=== PATIENT | female | born 1990 | race African-American/Black ===

== ENCOUNTER 2019-04-02 22:15 | Emergency (ER) | payer SELFPAY ==
[~2019-04-02] VITALS: Ht 165.1 cm; Wt 62.6 kg
[~2019-04-02 22:15] MED LIST: ALBU17AE4 IH
[2019-04-02 22:45] VITALS: BP 127/83
--- NOTE | 2019-04-02 22:46 | NUR ---
CAME IN FOR RLQ PAIN, THINKS SHE MIGHT BE , LAST USED [facility] 1HR AGO. TO ER BED 12, HOOKED TO MONITOR, VSS, AWAITING MD CAMARGO.
--- NOTE | 2019-04-02 23:20 | NUR ---
DR MAY AT BEDSIDE FOR EVAL
--- NOTE | 2019-04-02 23:22 | NUR ---
URINE SAMPLE SENT TO LAB
--- NOTE | 2019-04-02 23:43 | NUR ---
ENDORSEMENT GIVEN TO HUMBERTO HERNANDEZ FOR FREDO
== END 2019-04-03 00:10 | disposition home or self-care (01) ==
LOC: ER 22:20
DX: F15.10 Other stimulant abuse, uncomplicated (principal); I10 Essential (primary) hypertension; J45.909 Unspecified asthma, uncomplicated; F17.200 Nicotine dependence, unspecified, uncomplicated; R00.0 Tachycardia, unspecified; Z32.02 Encounter for pregnancy test, result negative
CPT/HCPCS: 84703-TC

== ENCOUNTER 2019-11-25 14:25 | Emergency (ER) | payer SELFPAY ==
[~2019-11-25] VITALS: Ht 152.4 cm; Wt 63.5 kg
--- NOTE | 2019-11-25 14:25 | NUR ---
Called pt states "dont call me in now -Be back in a couple minutes" Walked out of waiting area. Noticed Pt smoking out in Parking lot
[2019-11-25] MEDS ORDERED: HYDROCODONE/APAP 5/325MG 1 EACH TABLET PO ONE (15:00)
[2019-11-25] MEDS ORDERED: ONDANSETRON 4 MG TAB.RAPDIS SL ONE (15:00)
--- NOTE | 2019-11-25 15:18 | NUR ---
BIBS TO ER BED 14. AAOX4. NOT IN RESP DISTRESS. AMBULATORY. CAME IN FOR RECTAL BLEEDING AND RLQ ABDMONAL PAIN. PER PT, ABDOMINAL PAIN STARTED 2 WEEKS AGO RATED AT 5/10 CRAMPING SENSATION. RESTAL BLEEDING STARTED THIS MORNING. PT REPORTS, THAT SHE HAS BEEN CONSTIPATED FOR THE PAST WEEK AND HURST WHEN HAVING BM. MD WAS AT BEDSIDE FOR EVAL. ORDERS RECEIVED, NOTED AND CARRIED OUT. BASKET OPERATOR AT BEDSIDE FOR BLOOD DRAW. WILL CONTIONUE TO MONITOR PT.
[2019-11-25 15:33] LABS: APPEARANCE,URINE Cloudy (CLEAR); BILIRUBIN,URINE Negative (NEGATIVE); BLOOD, URINE Moderate Ery/uL (NEGATIVE); COLOR,URINE Yellow (YELLOW); KETONES,URINE Negative (NEGATIVE); LEUKOCYTE ESTERASE ,URINE Large (NEGATIVE); NITRITE, URINE Negative (NEGATIVE); PH,URINE 5.5 (5.0-8.0); PROTEIN,URINE >=300 mg/dl (NEGATIVE); UGLUCOSE Negative (NEGATIVE); UROBILINOGEN,URINE 0.2 EU/dL (0.2)
[2019-11-25 15:39] LABS: CALCIUM, SERUM 8.6 mg/dL (8.5-10.1); CREATININE 0.8 mg/dL (0.6-1.3); POTASSIUM 3.4 mmol/L (3.5-5.1)
[2019-11-25 15:44] LABS: BASOPHILS # (AUTO) 0.1 /CMM (0.0-0.2); BASOPHILS % (AUTO) 0.9 % (0.0-2.0); EOSINOPHILS % (AUTO) 0.9 % (0.0-6.0); HEMATOCRIT 31 % (33-45); HEMOGLOBIN 10.3 g/dL (11.5-14.8); LYMPHOCYTES # (AUTO) 1.5 /CMM (0.8-4.8); LYMPHOCYTES % (AUTO) 23.6 % (20.0-44.0); MEAN CORPUSCULAR HGB CONC 33 g/dl (31.0-36.0); MEAN CORPUSCULAR VOLUME 87 fL (82-100); MONOCYTES # (AUTO) 0.6 /CMM (0.1-1.30); MONOCYTES % (AUTO) 8.7 % (2.0-12.0); NEUTROPHILS # (AUTO) 4.3 /CMM (1.8-8.9); NEUTROPHILS % (AUTO) 65.9 % (43.0-81.0); PLATELET COUNT (AUTO) 312 /CMM (150-450); RED BLOOD CELL COUNT(AUTO) 3.62 MIL/uL (4.0-5.2); WHITE BLOOD COUNT (AUTO) 6.5 K/uL (4.3-11.0)
[2019-11-25 16:02] LABS: BACTERIA,URINE Many /HPF (None Seen); SQUAMOUS EPITHELIAL CELL,UR Many /HPF (None Seen)
[2019-11-25 16:03] LABS: RBC,URINE 0-2 /HPF (0-2)
--- NOTE | 2019-11-25 16:37 | NUR ---
Patient discharged to home in stable condition. Written and verbal after care instructions given. Patient verbalizes understanding of instruction. Pt ambulatory with a steady gait
[2019-11-25 17:06] VITALS: BP 127/74
--- NOTE | 2019-11-25 17:06 | NUR ---
pt opts to go with "call my baby daddy to pick me up"Patient discharged to home in stable condition. Written and verbal after care instructions given. Patient verbalizes understanding of instruction.
== END 2019-11-25 17:06 | disposition home or self-care (01) ==
LOC: ER 14:32
DX: K62.5 Hemorrhage of anus and rectum (principal); K59.00 Constipation, unspecified; N39.0 Urinary tract infection, site not specified; I10 Essential (primary) hypertension; J45.909 Unspecified asthma, uncomplicated; F17.200 Nicotine dependence, unspecified, uncomplicated; Z79.899 Other long term (current) drug therapy
CPT/HCPCS: 36415; 80048-TC; 81000-TC; 85025-TC; 87086-TC

== ENCOUNTER 2021-06-20 05:30 | Emergency (ER) | payer SELFPAY ==
[~2021-06-20] VITALS: Ht 165.1 cm; Wt 74.8 kg
--- NOTE | 2021-06-20 06:00 | NUR ---
PT AAOX4. BIBSELF C/O L SIDE OF NECK BURNED DUE TO PT FALLING ASLEEP ON PORTABLE GAS STOVE ON 06/06/21. ALSO, C/O L THUMB INSECT BITE. PLACED IN BED 12 ON MONITOR AND PULSE OX. PT STATED SHE HAS BEEN WASHING THE AREA AND PLACING TRIPLE ANTIBIOTICS ON IT.
--- NOTE | 2021-06-20 06:28 | NUR ---
verbal order tdap shot.
[2021-06-20] MEDS ORDERED: TDAP [DIPH/PERTUSSIS/TET] 0.5 ML VIAL IM ONE (06:30)
[2021-06-20] MEDS ORDERED: BACITRACIN ZINC OINT PACKET 1 EA PACKET TP ONE (06:30)
--- NOTE | 2021-06-20 06:35 | NUR ---
wound care done
[2021-06-20] MEDS ORDERED: IBUPROFEN 600 MG TABLET ONE (06:46)
--- NOTE | 2021-06-20 06:49 | NUR ---
Patient discharged to home in stable condition. Written and verbal after care instructions given. Patient verbalizes understanding of instruction. Pt ambulatory with a steady gait
[2021-06-20 06:50] VITALS: BP 135/82
[2021-06-20] MEDS ORDERED: IBUPROFEN 600 MG TABLET PO ONE (07:00)
== END 2021-06-20 06:48 | disposition home or self-care (01) ==
LOC: ER 05:31
DX: T20.27XA Burn of second degree of neck, initial encounter (principal); S60.322A Blister (nonthermal) of left thumb, initial encounter; I10 Essential (primary) hypertension; J45.909 Unspecified asthma, uncomplicated; F17.200 Nicotine dependence, unspecified, uncomplicated; Z59.00 Homelessness unspecified; Z79.899 Other long term (current) drug therapy; X15.0XXA Contact with hot stove (kitchen), initial encounter; Y93.89 Activity, other specified; Y92.89 Other specified places as the place of occurrence of the external cause; Y99.8 Other external cause status
CPT/HCPCS: 90715

== ENCOUNTER 2022-11-11 06:06 | Emergency (ER) | payer MEDICAID ==
[~2022-11-11] VITALS: Ht 162.6 cm; Wt 63.5 kg
[2022-11-11 07:00] VITALS: BP 133/84
[2022-11-11] MEDS ORDERED: DIPH50CA4 PO (07:23)
== END 2022-11-11 07:59 | disposition home or self-care (01) ==
LOC: ER 06:06
DX: R20.8 Other disturbances of skin sensation (principal); I10 Essential (primary) hypertension; J45.909 Unspecified asthma, uncomplicated; F17.200 Nicotine dependence, unspecified, uncomplicated; Z79.899 Other long term (current) drug therapy